=== PATIENT | female | born 1960 | race Caucasian/White ===

== ENCOUNTER 2020-10-16 11:38 | Emergency (ER) | payer MEDICARE, SELFPAY ==
[~2020-10-16 11:38] MED LIST: ALBUTEROL0.63 MG/3 INH; ALDACTONE25 MG PO; AMITIZA8 MCG PO; ANASTROZOLE1 MG PO; ASPIRIN EC325 MG PO; ATIVAN1 MG PO; BASAGLAR K100 UNIT/1 SQ; BENTYL 20MG TAB20 MG PO; CALCIUM 500 +1 EAC2 PO; CALCIUM500 MG PO; CARDIZEM CD240 MG PO; CARDIZEM CD360 MG PO; CLONIDINE HCL0.1 MG PO; COLCHICINE 0.60.6 MG PO; COMPAZINE10 MG PO; CYCLOBENZAPRINE10 MG PO; CYMBALTA60 MG PO; ESTRACE 1 MG TAB1 MG PO; FLEXERIL 10 MG10 MG PO; FLONASE 0.05% N16 GM; FOLIC ACID 1 MG1 MG PO; HYDRALAZINE HCL10 MG PO; HYDRALAZINE HCL50 MG PO; HYDROCODON-ACE1 EAC6 PO; IMDUR ER TAB 3030 MG PO; IMDUR ER TAB 6060 MG PO; K-DUR TAB 10 M10 MEQ PO; K-TAB ER20 MEQ PO; KEPPRA 500 MG500 MG PO; LASIX 40 MG TAB40 MG PO; LEVAQUIN750 MG PO; LISINOPRIL40 MG PO; LOPERAMIDE2 MG PO; LOPRESSOR100 MG PO; NITROSTAT 0.40.4 MG SL; NOLVADEX 10 MG10 MG PO; NORVASC 5 MG TAB5 MG PO; PEPCID20 MG PO; PLAVIX 75 MG TA75 MG PO; PROCHLORPERAZIN10 MG PO; PROTONIX 40 MG40 M1 PO; SIMVASTATIN20 MG PO; VENTOLIN HFA 66.7 GM INH; VITAMIN B-1000 MCG/M INJ; VITAMIN D21250 MCG PO; ZOFRAN4 MG PO
[2020-10-16] MEDS ORDERED: VISTARIL25 MG PO (12:54)
[2020-10-16] MEDS ORDERED: PREDNISONE 50 M50 MG PO (12:54)
== END 2020-10-16 13:30 | disposition home or self-care (01) ==
LOC: ER1 11:38
DX: R21 Rash and other nonspecific skin eruption (principal); Z87.19 Personal history of other diseases of the digestive system; Z88.5 Allergy status to narcotic agent; Z88.2 Allergy status to sulfonamides; Z88.1 Allergy status to other antibiotic agents; Z88.8 Allergy status to other drugs, medicaments and biological substances; Z91.040 Latex allergy status
CPT/HCPCS: 96372; 99282; J2930

== ENCOUNTER → 2020-12-19 | Outpatient (CLI) | payer MEDICARE ==
[~2020-12-19] MED LIST changes: +PREDNISONE 50 M50 MG PO; +VISTARIL25 MG PO
== END ==
LOC: EXRD 13:00
DX: M81.8 Other osteoporosis without current pathological fracture (principal)
CPT/HCPCS: 77080

== ENCOUNTER → 2020-12-23 | Outpatient (CLI) | payer MEDICARE | LOC: LAB 08:27 | DX: Z53.8 Procedure and treatment not carried out for other reasons (principal) ==

== ENCOUNTER → 2021-01-04 | Outpatient (CLI) | payer MEDICARE ==
[2021-01-04 11:53] LABS: BUN/CREATININE RATIO 28 (0-10)
[2021-01-05 10:14] LABS: CREATININE, URINE 190.9 mg/dL (Not Estab.)
== END ==
LOC: LAB 10:23
PROVIDERS: Internal Medicine Nephrology
DX: I10 Essential (primary) hypertension (principal)
CPT/HCPCS: 36415; 80048; 82043; 82570

== ENCOUNTER 2021-04-15 16:58 | Emergency (ER) | payer MEDICARE | END 2021-04-15 19:34 | disposition home or self-care (01) | LOC: ER1 16:58 | DX: S93.401A Sprain of unspecified ligament of right ankle, initial encounter (principal); X50.9XXA Other and unspecified overexertion or strenuous movements or postures, initial encounter; Z88.5 Allergy status to narcotic agent | CPT/HCPCS: 73610; 73630; 99283 ==

== ENCOUNTER → 2021-05-31 | Outpatient (CLI) | payer MEDICARE ==
[2021-05-31 19:43] LABS: BUN/CREATININE RATIO 25 (0-10)
[2021-06-02 10:16] LABS: CREATININE, URINE 159.9 mg/dL (Not Estab.)
== END ==
LOC: LAB 17:19
PROVIDERS: Internal Medicine Nephrology
DX: I10 Essential (primary) hypertension (principal)
CPT/HCPCS: 80048; 82043; 82570

== ENCOUNTER → 2021-07-14 | Outpatient (CLI) | payer MEDICARE ==
[2021-07-14 12:30] LABS: HEMOGLOBIN 13.5 gm/dl (12.3-15.3); RED BLOOD COUNT 4.55 M/UL (4.00-5.10); WHITE BLOOD COUNT 6.3 K/UL (4.5-11.0)
[2021-07-14 12:47] LABS: BUN/CREATININE RATIO 26 (0-10)
[2021-07-17 11:13] LABS: CREATININE, URINE 144.8 mg/dL (Not Estab.)
== END ==
LOC: LAB 11:56
PROVIDERS: Physician Assistant
DX: E11.65 Type 2 diabetes mellitus with hyperglycemia (principal); E53.8 Deficiency of other specified B group vitamins; E55.9 Vitamin D deficiency, unspecified
CPT/HCPCS: 80053; 80061; 82043; 82570; 82607; 83036; 85025

== ENCOUNTER → 2021-12-13 | Outpatient (CLI) | payer MEDICARE ==
[2021-12-13 13:58] LABS: BUN/CREATININE RATIO 25 (0-10)
[2021-12-14 10:15] LABS: CREATININE, URINE 139.2 mg/dL (Not Estab.)
== END ==
LOC: LAB 12:15
PROVIDERS: Internal Medicine Nephrology
DX: I10 Essential (primary) hypertension (principal)
CPT/HCPCS: 36415; 80048; 82043; 82570

== ENCOUNTER → 2021-12-15 | Outpatient (CLI) | payer MEDICARE | LOC: MRI 14:01 | DX: M54.50 Low back pain, unspecified (principal); R10.2 Pelvic and perineal pain; R20.2 Paresthesia of skin; M47.816 Spondylosis without myelopathy or radiculopathy, lumbar region; M47.817 Spondylosis without myelopathy or radiculopathy, lumbosacral region; M51.86 Other intervertebral disc disorders, lumbar region; M51.87 Other intervertebral disc disorders, lumbosacral region; M48.061 Spinal stenosis, lumbar region without neurogenic claudication; M48.07 Spinal stenosis, lumbosacral region | CPT/HCPCS: 72148 ==

== ENCOUNTER 2021-12-24 13:59 | Emergency (ER) | payer OTHER ==
[2021-12-24 20:52] LABS: HEMOGLOBIN 12.8 gm/dl (12.3-15.3); RED BLOOD COUNT 4.34 M/UL (4.00-5.10); WHITE BLOOD COUNT 5.8 K/UL (4.5-11.0)
[2021-12-24 21:14] LABS: BUN/CREATININE RATIO 22 (0-10)
[2021-12-24] MEDS ORDERED: NORFLEX 100 MG100 MG PO (22:04)
[2021-12-24] MEDS ORDERED: NAPROSYN500 MG PO (22:04)
== END 2021-12-24 22:19 | disposition home or self-care (01) ==
LOC: ER1 13:59
PROVIDERS: Physician Assistant Medical
DX: M25.571 Pain in right ankle and joints of right foot (principal); R10.84 Generalized abdominal pain; M79.10 Myalgia, unspecified site; I10 Essential (primary) hypertension; E11.9 Type 2 diabetes mellitus without complications; Z79.02 Long term (current) use of antithrombotics/antiplatelets; Z85.3 Personal history of malignant neoplasm of breast; Z79.82 Long term (current) use of aspirin; Z86.73 Personal history of transient ischemic attack (TIA), and cerebral infarction without residual deficits; Z91.040 Latex allergy status; Z88.5 Allergy status to narcotic agent; Z88.1 Allergy status to other antibiotic agents; V43.62XA Car passenger injured in collision with other type car in traffic accident, initial encounter; Y92.410 Unspecified street and highway as the place of occurrence of the external cause
CPT/HCPCS: 70450; 71250; 72125; 72128; 72131; 73562; 73600; 80053; 85025; 99284; Q9967

== ENCOUNTER → 2022-05-06 | Outpatient (CLI) | payer MEDICARE ==
[~2022-05-06] MED LIST changes: +NAPROSYN500 MG PO; +NORFLEX 100 MG100 MG PO
[2022-05-08 11:15] LABS: CREATININE, URINE 169.3 mg/dL (Not Estab.)
== END ==
LOC: US 15:18
PROVIDERS: Internal Medicine Nephrology
DX: N23 Unspecified renal colic (principal); I10 Essential (primary) hypertension
CPT/HCPCS: 81001; 82043; 82570